=== PATIENT | female | born 1965 | race Caucasian/White ===

== ENCOUNTER → 2016-03-30 | Outpatient (CLI) | payer OTHER ==
[~2016-03-30] MED LIST: ASPI81TA28 PO; CHOL1000 PO; CHOL100010 PO; CLRD/12 PO; MTR600X PO; MULT-506 PO; OXYC-57 PO; OXYC5TAB PO; TRIA1SPR4 NAE; VALA500T60 PO
--- NOTE | 2016-03-30 14:36 | DIAGNOSTIC IMAGING REPORT ---
EXAMINATION: PELVIC ULTRASOUND (transabdominal and endovaginal scanning) CLINICAL HISTORY: PELVIC PAIN AND BLEEDING COMPARISON STUDY: 10/11/2014 FINDINGS: The uterus measured 9.6 x 7.1 x 5.6 cm.. The endometrial is filled with echogenic debris measuring 15 mm in thickness. This presumably represents clot clot within the endometrial cavity, although a polyp could appear similar.. Clinical and follow-up ultrasonography is recommended. The right ovary measured 29 x 26 x 16 mm. There is a 14 mm hypoechoic focus likely representing a functional cyst. The left ovary measured 26 x 18 x 14 mm.. There is no ultrasonographic evidence of ovarian torsion. It should be noted that ovarian torsion can be present with normal Doppler ultrasonographic findings. There was no evidence of pathologic free pelvic fluid. IMPRESSION: 1. Abnormal appearing endometrium, likely representing hemorrhage within the canal, although an endometrial polyp could appear similar. Clinical follow-up and/or ultrasonographic follow-up is recommended. 2. No suspicious adnexal masses Electronically signed by: Pablo Kim M.D. 03/30/2016 2:34 PM Dictated Date/Time: 03/30/2016 2:30 PM
== END | disposition home or self-care (01) ==
LOC: C.ULTR 13:22
PROVIDERS: ATTEND Family Medicine
DX: R10.2 Pelvic and perineal pain (principal); N93.9 Abnormal uterine and vaginal bleeding, unspecified

== ENCOUNTER → 2016-04-01 | Outpatient (CLI) | payer OTHER | END | disposition home or self-care (01) | LOC: C.PATHSPEC 11:30 | PROVIDERS: ATTEND Obstetrics & Gynecology | DX: R93.8 Abnormal findings on diagnostic imaging of other specified body structures (principal) ==

== ENCOUNTER → 2016-04-01 | Outpatient (CLI) | payer OTHER | END | disposition home or self-care (01) | LOC: C.LAB1850 09:43 | PROVIDERS: ATTEND Obstetrics & Gynecology | DX: N92.0 Excessive and frequent menstruation with regular cycle (principal) ==

== ENCOUNTER → 2016-05-06 | Outpatient (CLI) | payer OTHER ==
--- NOTE | 2016-05-06 15:34 | DIAGNOSTIC IMAGING REPORT ---
CHEST 2 VIEWS ROUTINE CLINICAL HISTORY: Preoperative chest COMPARISON STUDY: No previous studies for comparison. FINDINGS: The cardiac and mediastinal contours are normal. There is no evidence of focal pulmonary consolidation. There is no evidence of failure. No pleural effusions are visualized.[ IMPRESSION: No active disease in the chest. Electronically signed by: Pablo Kim M.D. 05/06/2016 3:32 PM Dictated Date/Time: 05/06/2016 3:32 PM
== END | disposition home or self-care (01) ==
LOC: C.RAD1850 15:18
PROVIDERS: ATTEND Obstetrics & Gynecology
DX: Z01.818 Encounter for other preprocedural examination (principal)

== ENCOUNTER 2016-05-25 05:34 | Observation (INO) | payer OTHER ==
[2016-05-06 15:51] LABS: BASO % 0.3 %; BASO ABS # 0.02 K/uL (0-0.2); COMPLETE YES; EOS % 2.3 %; HEMATOCRIT 39.7 % (37-47); IG% 0.1 %; LYMPH ABS # 2.98 K/uL (1.2-3.4); MEAN CELL VOLUME 86.1 fL (80-100); MEAN CORPUSCULAR HEMOGLOBIN 29.1 pg (25-34); MEAN CORPUSCULAR HGB CONC 33.8 g/dl (32-36); MEAN PLATELET VOLUME 10.1 fL (7.4-10.4); MONO % 8.5 %; NEUT % 47.8 %; PLATELET COUNT 358 K/uL (130-400); RED BLOOD COUNT 4.61 M/uL (4.2-5.4); WHITE BLOOD COUNT 7.27 K/uL (4.8-10.8)
[2016-05-06 16:31] LABS: BLOOD UREA NITROGEN 16 mg/dl (7-18); BUN/CREATININE RATIO 23.7 (10-20); CALCIUM 8.9 mg/dl (8.5-10.1); CARBON DIOXIDE 28 mmol/L (21-32); CHLORIDE 107 mmol/L (98-107); CREATININE 0.68 mg/dl (0.60-1.20); GLUCOSE 84 mg/dl (70-99); POTASSIUM 4.5 mmol/L (3.5-5.1); SODIUM 142 mmol/L (136-145)
[2016-05-18 07:59] VITALS: BMI 24.0
[2016-05-25] VITALS (11 sets, daily range): BP systolic 107–140; BP diastolic 67–98; PULSE 81–100; TEMP 34.4–36.7; O2SAT 96–100; Ht 167.6 cm; Wt 68.2 kg
[~2016-05-25] VITALS: Ht 167.6 cm; Wt 68.2 kg
[~2016-05-25 05:34] MED LIST changes: -CHOL100010 PO; +LACTATED RINGER'S 1000ML 1,000 ML IV SCH; -MTR600X PO; -OXYC-57 PO; -OXYC5TAB PO; -TRIA1SPR4 NAE
[2016-05-25] MEDS ORDERED: LACTATED RINGER'S 1000ML 1,000 ML IV SCH ×3 (06:00→12:45)
[2016-05-25] MEDS ORDERED: CEFAZOLIN 2000 MG/60 ML D5W 50 ML IV SCH (06:00)
[2016-05-25] MEDS ORDERED: NEOSTIGMINE METHYLSULFATE 5 MG/5 ML SYR ONE (06:03)
[2016-05-25] MEDS ORDERED: PROPOFOL IV EMULSION 10 MG/ML 20 ML VIAL IV ONE (06:03)
[2016-05-25] MEDS ORDERED: ROCURONIUM BROMIDE 10 MG/ML 5 ML VIAL ONE (06:03)
[2016-05-25] MEDS ORDERED: MIDAZOLAM HCL 1 MG/ML 2ML VIAL ONE (06:03)
[2016-05-25] MEDS ORDERED: ONDANSETRON INJ 2 MG/ML 2 ML VIAL ONE (06:03)
[2016-05-25] MEDS ORDERED: FENTANYL CITRATE INJ 50 MCG/1 ML 2 ML VIAL ONE (06:03)
[2016-05-25] MEDS ORDERED: HYDROmorphone INJ 2 MG/ML SYR/VIAL ONE (06:03)
[2016-05-25] MEDS ORDERED: GLYCOPYRROLATE INJ 0.2 MG/ML VIAL ONE (06:03)
[2016-05-25] MEDS ORDERED: LIDOCAINE HCL 2% 2 ML VIAL (20MG/ML) ONE (06:03)
[2016-05-25] MEDS ORDERED: DEXAMETHASONE SOD INJ 4 MG/ML VIAL ONE (06:03)
[2016-05-25] MEDS ORDERED: ACETAMINOPHEN 1000 MG/100 ML IV IV ONE (06:18)
--- NOTE | 2016-05-25 07:09 | History & Physical Bridge Note ---
H&P Re-Evaluation Bridge Note: I have examined the patient, reviewed the History & Physical and in the interval since the performance of the History & Physical I have noted the following changes of clinical significance: No changes noted
[2016-05-25] MEDS ORDERED: LACTATED RINGER'S 1000ML 1,000 ML IV PRN (07:15)
[2016-05-25] MEDS ORDERED: HYDROmorphone INJ 1 MG/ML SYR IV PRN (07:15)
[2016-05-25] MEDS ORDERED: ONDANSETRON INJ 2 MG/ML 2 ML VIAL IV PRN ×2 (07:15→09:15)
[2016-05-25] MEDS ORDERED: FENTANYL CITRATE INJ 50 MCG/1 ML 2 ML VIAL IV PRN (07:15)
[2016-05-25] MEDS ORDERED: DiphenhydrAMINE HCL 50 MG/ML VIAL IV PRN (07:15)
[2016-05-25] MEDS ORDERED: SCOPOLAMINE 1.5 MG TDSY TD ONE (07:22)
[2016-05-25] MEDS ORDERED: BUPIVACAINE 0.5 % 5 MG/1 ML MPF 30ML VIAL ONE (07:28)
[2016-05-25] MEDS ORDERED: METHYLENE BLUE 0.5% 10 ML VIAL ONE (07:28)
[2016-05-25] MEDS ORDERED: METOCLOPRAMIDE HCL INJ 5 MG/ML 2 ML VIAL ONE (07:44)
[2016-05-25] MEDS ORDERED: DiphenhydrAMINE HCL 50 MG/ML VIAL ONE (07:44)
[2016-05-25] MEDS ORDERED: TISSEEL FIBRIN SEALANT 4ML TOP ONE (08:43)
[2016-05-25] MEDS ORDERED: KETOROLAC TROMETHAMINE 30 MG/ML VIAL IV. PRN (09:15)
[2016-05-25] MEDS ORDERED: ZOLPIDEM TARTRATE 5 MG TAB PO PRN (09:15)
[2016-05-25] MEDS ORDERED: BISACODYL 10 MG SUPP PR PRN (09:15)
[2016-05-25] MEDS ORDERED: MEPERIDINE HCL 75 MG/ML CARP IV PRN (09:15)
[2016-05-25] MEDS ORDERED: ACETAMINOPHEN 325 MG TAB PO PRN (09:15)
[2016-05-25] MEDS ORDERED: IBUPROFEN 600 MG TAB PO PRN (09:15)
[2016-05-25] MEDS ORDERED: MEPERIDINE HCL 50 MG/ML CARP IV PRN (09:15)
[2016-05-25] MEDS ORDERED: OXYCODONE/ACETAMINOPHEN 5-325 TAB PO PRN ×2 (09:15)
[2016-05-25] MEDS ORDERED: PROMETHAZINE HCL INJ 12.5 MG in SODIUM CHLORIDE 0.9% 50ML 50 ML IV PRN (09:15)
[2016-05-25] MEDS ORDERED: PROMETHAZINE HCL INJ 25 MG in SODIUM CHLORIDE 0.9% 50ML 50 ML IV PRN (09:15)
[2016-05-25] MEDS ORDERED: SIMETHICONE 80 MG CHEW PO PRN (09:15)
[2016-05-25] MEDS ORDERED: MAGNESIUM HYDROXIDE SUSP 30 ML UDC PO PRN (09:15)
--- NOTE | 2016-05-25 09:15 | [facility] Post Operative Brief Note ---
Immediate Operative Summary Operative Date May 25, 2016. Pre-Operative Diagnosis Menorrhagia and failed ablation Post-Operative Diagnosis Same as pre-operative Procedure(s) Performed Robotic assisted total laparoscopic hysterectomy with bilateral salpingo-oopherectomy and cystoscopy Surgeon Dr. Hanna Madrigal MD Revenue Accounting Manager Surgeon(s) None Estimated Blood Loss 40ml Findings pelvic adhesion Specimens A. Uterus, cervix, and bilateral fallopian tubes and ovaries Drains Armstrong Anesthesia General Complication(s) None Disposition Recovery Room / PACU
--- NOTE | 2016-05-25 09:16 | Discharge Instructions ---
Discharge Instructions Date of Service May 25, 2016. Admission Reason for Admission: Heavy Menses, Abnormal Pelvic Ultrasound Discharge Discharge Diagnosis / Problem: menorrhagia Discharge Goals Goal(s): Routine recovery after surgery Activity Recommendations Activity Limitations: per Instructions/Follow-up section . Instructions / Follow-Up Instructions / Follow-Up POST OPERATIVE: BOWEL FUNCTION/MEDICATIONS: 1. Constipation pain and discomfort are the most common complaints 5-7 days after surgery. Points 2-6 address the things that can help. 2. Chewing gum can help stimulate the gut and help improve digestion and motility. 3. Milk of Magnesia 1-2 times per day until return of bowel function. 4. Colace is a stool softener that helps. Taking this 2-3 times per day until bowel function returns to normal is highly recommended. 5. Dulcolax is a laxative that may be used if several days have passed without a bowel movement. Alternatively Miralax may be used daily instead. 6. Drink plenty of fluids as this will also reduce constipation. 7. Narcotic pain medications will be prescribed by your physician. They are safe to use and we encourage you to use them. If you are not allergic, ibuprofen will also be prescribed. Many patients will be able to transition off of the narcotic medications to ibuprofen by postoperative day 3. ACTIVITY RECOMMENDATIONS: 1. Get plenty of rest and listen to your body. If you are tired, take a nap. 2. You may shower, but do not take a tub bath until you see your doctor at the 2 week post operative visit. 3. Absolutely NO intercourse and nothing in the vagina until you are examined by your doctor at the 6 week visit. At that visit it will be determined when such activities can be resumed. This can range from 6-12 weeks after your surgery depending on healing time. 4. The main physical activity in the first week should be walking. By the second week you can slowly increase activity. There are no limits on walking up and down stairs. 5. Do not lift more than 5-10 lbs for 4 weeks. Remember the "one-handed rule", i.e. if you can lift something with only one hand it's likely okay. 6. Minimize log feeder like vacuuming and exercising for 4 weeks. "Overdoing it" can lead to incisions not healing, pain and vaginal bleeding , so again, listen to your body. 7. Driving can be resumed when you feel able. Do not drive within 24 hours of taking a narcotic medication. EXPECTATIONS: 1. Vaginal spotting, bleeding and discharge are common after surgery. There may even be an odor to the discharge which is often related to sutures used in the vagina. If you experience heavy vaginal bleeding, call the office number day or night [phone]. 2. Bladder discomfort is common after surgery from the catheter. This usually resolves in 1-2 weeks. 3. By the end of the 3rd or 4th week you should be feeling much better. It may take up to 6 weeks for your energy levels to return to normal. 4. Narcotic medications have side effects such as: dizziness, headache, nausea and/or vomiting. If you suspect your pain medication is causing problems, call our office and we may be able to prescribe an alternate medication. 5. The skin incisions are often covered with a liquid bandage. This will gradually peel off over time. CALL THE OFFICE IF YOU HAVE ANY OF THE FOLLOWIN. Temperature of 101 degrees or higher. 2. Severe abdominal or pelvic pain not relieved by pain medication. 3. Persistent nausea or vomiting. 4. Increased pain with urination or difficulty urinating. 5. Bright red bleeding that soaks more than 1 pad per hour. CONTACT PHONE NUMBERS: Main Office: [phone] Surgical Nurse: [phone] extension [phone] Avoid all tobacco products. If you need help to stop smoking, call [place]'s FREE QUITLINE at . This is a free call. Current Hospital Diet Patient's current hospital diet: Discharge Diet Recommended Diet: Regular Diet Procedures Procedures Performed: Robotic assisted total laparoscopic hysterectomy with bilateral salpingo-oopherectomy and cystoscopy Pending Studies Studies pending at discharge: no Medical Emergencies . Who to Call and When: Medical Emergencies: If at any time you feel your situation is an emergency, please call 911 immediately. . Non-Emergent Contact Non-Emergency issues call your: Career Representative . . "Provider Documentation" section prepared by Bryce Madrigal. VTE Core Measure Inpt VTE Proph given/why not?: Mallory Dale, SCD's
[2016-05-25] MEDS ORDERED: MTR600X PO (09:17)
[2016-05-25] MEDS ORDERED: OXYC-57 PO (09:17)
[2016-05-25] MEDS ORDERED: IV FLUIDS COMPLETED PRN (09:45)
--- NOTE | 2016-05-25 09:47 | OPERATIVE REPORT ---
DATE OF OPERATION: 05/25/2016 PREOPERATIVE DIAGNOSES: Menorrhagia, failed ablation. POSTOPERATIVE DIAGNOSES: Same. PROCEDURES: Robotically assisted total laparoscopic hysterectomy, bilateral salpingo-oophorectomy and cystoscopy. SURGEON: Dr. Madrigal. LATEX FOAM WORKER: None. ESTIMATED BLOOD LOSS: 40 mL. FINDINGS: Left fallopian tube adhesions to the small bowel. SPECIMENS: Uterus, cervix, bilateral fallopian tubes and ovaries. DRAINS: Armstrong. ANESTHETIC: General. COMPLICATIONS: None. DISPOSITION: Recovery. DESCRIPTION OF PROCEDURE: Destinee was given a general anesthetic, prepped and draped in dorsal lithotomy position in [facility]. Bladder drained. VCare inserted and sewn in place. Gloves changed. Supraumbilical incision made with scalpel. Using open Ro technique, we did a cut down through subcutaneous fat to the fascia, splitting the rectus muscles and entering the peritoneal cavity without difficulty. Blunt-tipped Ro trocar then placed into the peritoneal cavity. Balloon inflated and CO2 gas used to insufflate the abdomen. FINDINGS: Upper abdomen normal, no sign of visceral organ injury. Deep Trendelenburg position then obtained and the following findings were noted. Uterus appeared normal as did the adnexa. There was a large bowel adhesion of the left round ligament. This was primarily was the epiploicae. Pictures were taken. Otherwise, ureter seem to follow normal course. Two robotic ports, 1 in the left, 1 in the right placed and then a left upper quadrant 11 mm bladeless port placed. Robot docked. Arm #1 monopolar varsha, arm 2, bipolar [place]. The procedure was begun by using the VCare manipulator, gently dissected away the adhesion of the bowel without using any electrosurgery. Minimal electrosurgery was used afterwards against the uterus just for hemostasis. Once the adhesion freed, I was able to see the left adnexa better which appeared normal. The patient wished her ovaries out, so we began by identifying the ureter first on the left side opening the broad ligaments and then making a window to allow coagulation of the ovarian artery and vein proximal to the ovary. We were well away from the ureter. We then further skeletonized after cutting through the ovary away. The round ligament was coagulated and cut. The uterine vessels were then skeletonized. Bladder flap sharply dissected. Uterine vessels were then coagulated. This was done with the bipolar [place]. We were well away from the left ureter. These were then cut with the monopolar varsha. The exact same process continued on the right. However, there was no adhesion. At this stage, once the bladder flap was fully developed and both uterine vessels were sealed with comment that the right uterine was somewhat less hemostatic, but we were able to coagulate this fully with the bipolar [place] eventually. At this stage, we then made an anterior colpotomy with the monopolar varsha and then we were able to fully separate the cervix from the vagina. We stayed medial to our uterine vessel ligations. Uterus was then pulled into the vagina along with the adnexa and then removed. The sponge and glove was then placed into the vagina for pneumoperitoneum. On inspection time, hemostasis improved markedly and arm #1 became the emmanuel needle bus driver supervisor, arm #2 became the cobra. Suture then placed and we then sewed the cuff from left to right, back right to left ensuring at least 1 cm thickness bites of vaginal mucosa. I would comment that the cuff tissue seemed excellent and cuff was well approximated. Suture was then cut so there was no tail. Needle removed from the accessory port. At this stage after generous irrigation and suctioned, the bleeding was much improved. We did apply Tisseel to the area of 4 mL for further hemostasis and then performed cystoscopy. Armstrong catheter removed. Cystoscope was used and with normal saline, I was able to view the cavity. There were no sutures in the bladder and no abnormalities. Good strong jets of bluish dye from both left and right ureter openings. Cystoscope removed and a new Armstrong catheter placed on reinspection, hemostasis was still excellent. We then removed the robotic instruments, undocked the robot, ports removed, and gas allowed to escape. Incisions injected with 0.5% Marcaine. Fascia closed carefully with 0 Vicryl in the umbilical incision and then several [id number] and then deep subcutaneous fat closures as well as the left upper quadrant incision and then 4-0 subcuticular Monocryl and Dermabond. Instruments counts were correct. Urine was clear at the end of the procedure and the patient was transferred in stable condition to recovery. I attest to the content of the Intraoperative Record and any orders documented therein. Any exceptio ns are noted below.
--- NOTE | 2016-05-25 10:04 | Anesthesiology Progress Note ---
Anesthesia Post Op Note Date & Time May 25, 2016 at 10:03 Vital Signs Pain Intensity: 0 Vital Signs Past 12 Hours Date Time Temp Pulse Resp B/P Pulse Ox O2 Delivery O2 Flow Rate FiO2 05/25/16 09:55 78 14 107/61 99 Nasal Cannula 3 05/25/16 09:45 79 14 105/60 99 Mask 10 05/25/16 09:35 80 14 100/57 99 Mask 10 05/25/16 09:26 36.0 78 14 100/59 99 Mask 10 05/25/16 06:00 36.7 100 18 140/98 99 Room Air Notes Mental Status: alert / awake / arousable, participated in evaluation Pt Amnestic to Procedure: Yes Nausea / Vomiting: adequately controlled Pain: adequately controlled Airway Patency, RR, SpO2: stable & adequate BP & HR: stable & adequate Hydration State: stable & adequate Anesthetic Complications: no major complications apparent Pt doing well.
[2016-05-25 10:24] LABS: PREG INTERNAL NEGATIVE QC NEG CLEAR BACKGROUND; PREG INTERNAL POSITIVE QC POS CONTROL LINE
[2016-05-25] MEDS ORDERED: DOCUSATE SODIUM 100 MG CAP PO SCH (21:00)
--- NOTE | 2016-05-27 09:27 | DISCHARGE SUMMARY ---
HISTORY OF PRESENT ILLNESS: Destinee had a total laparoscopic hysterectomy on 05/25/2016. This was uncomplicated. She had a BSO as well. Her course in hospital was unremarkable. She was discharged home the same day of surgery, several hours after surgery in fact. At that time she voiced no complaints. Pain was well controlled. She had no vaginal bleeding and no extremity pain. PHYSICAL EXAMINATION: VITAL SIGNS: Stable. She was afebrile. IMPRESSION AND PLAN: Met discharge criteria. She was discharged home on Percocet and Motrin and told to follow up in the office. Discussion of restrictions and activity limitations were also reviewed as well.
== END 2016-05-25 16:45 | disposition home or self-care (01) ==
LOC: ENRESERVDT → ENRESERVTM → C.ACU 05:34 → C.MS4N 06:00
PROVIDERS: ADMIT Obstetrics & Gynecology; ATTEND Obstetrics & Gynecology
DX: N80.0 Endometriosis of uterus (principal); D25.9 Leiomyoma of uterus, unspecified; Z79.82 Long term (current) use of aspirin; Z79.899 Other long term (current) drug therapy

== ENCOUNTER → 2016-07-27 | Outpatient (CLI) | payer OTHER ==
[~2016-07-27] MED LIST changes: -LACTATED RINGER'S 1000ML 1,000 ML IV SCH; +MTR600X PO; +OXYC-57 PO
--- NOTE | 2016-07-28 14:15 | MAMMOGRAPHY REPORT ---
BILATERAL DIGITAL SCREENING MAMMOGRAM TOMOSYNTHESIS WITH CAD: 07/27/2016 CLINICAL HISTORY: Routine screening. Patient has no complaints. TECHNIQUE: Breast tomosynthesis in addition to standard 2D mammography was performed. Current study was also evaluated with a Computer Aided Detection (CAD) system. COMPARISON: Comparison is made to exams dated: 08/09/2015 ultrasound biopsy, 08/09/2015 mammogram, 2015 ultrasound, 07/31/2015 mammogram, 07/22/2015 mammogram, and 07/18/2014 mammogram - [facility]. BREAST COMPOSITION: The tissue of both breasts is heterogeneously dense, which may obscure small mas ses. FINDINGS: There is stable nodularity in the right breast. 2 stable metallic biopsy markers in the ri ght breast. Scattered benign-appearing calcifications bilaterally. No new suspicious mass, architec tural distortion or cluster of microcalcifications is seen. IMPRESSION: ACR BI-RADS CATEGORY 1: NEGATIVE There is no mammographic evidence of malignancy. A 1 year screening mammogram is recommended. The pa tient will receive written notification of the results. Approximately 10% of breast cancers are not detected with mammography. A negative mammographic report should not delay biopsy if a clinically suggestive mass is present. Sandra Hope M.D. ay/:07/27/2016 16:21:50 Adzing And Boring Machine Operator: Katie Giron, [facility] letter sent: Normal 1/2 BI-RADS Code: ACR BI-RADS Category 1: Negative
== END | disposition home or self-care (01) ==
LOC: C.MAMM 16:03
PROVIDERS: ATTEND Obstetrics & Gynecology
DX: Z12.31 Encounter for screening mammogram for malignant neoplasm of breast (principal)

== ENCOUNTER → 2017-04-16 | Outpatient (CLI) | payer OTHER | END | disposition home or self-care (01) | LOC: C.LABMFLN 11:15 | PROVIDERS: ATTEND Family Medicine | DX: B37.9 Candidiasis, unspecified (principal) ==